=== PATIENT | female | born 1990 | race Caucasian/White ===

== ENCOUNTER 2025-03-13 02:05 | Day surgery (SDC) | payer OTHER, SELFPAY ==
[2025-03-05 17:55] VITALS: BMI 34.4
--- NOTE | 2025-03-05 17:57 | SUR.PREOP ---
Report to the Outpatient Waiting Room, entrance under the green pavilion located off [facility], at time __0700 on date __03/13/25 . Planned Procedure Time: ____899____.? Time changes happen often and if your time is changed the preop area will call you the afternoon before. - You and your visitor will be asked to self-screen and do not enter if you have any COVID symptoms. Please call surgeon if you need to reschedule. - A mask is optional within the hospital at this time. Patients may have clear liquids (water, carbonated beverages, clear teas, apple juice) until 3 hours prior to surgery with a maximum of 20 ounces. - No food from midnight until time of surgery and no smoking, or chewing tobacco (or any form of nicotine). No chewing gum, candy or mints. - Infants may have breast milk until 4 hours before surgery, formula 6 hours prior to surgery. - Children will be allowed to drink immediately following surgery.? If applicable, please bring a bottle or sippy cup to assist with drinking. Juice, water, soda, and popsicles are readily available.? For infants on formula, please bring formula the day of surgery.? Pacifiers are allowed. Take only the following medications with a SIP of water on the morning of surgery: Gabapentin DO NOT STOP ANY OF YOUR OTHER PRESCRIPTION MEDICATIONS PRIOR TO SURGERY EXCEPT THE FOLLOWING Hold all vitamins and supplements for 3 days per anesthesiologist. Medications to discontinue per physician Hold Strattera DOS Date to take last dose Please no make-up, nail sinhala, hairspray, perfume, deodorant, or body powder the day of surgery.? No jewelry (including any body piercings) or valuables the day of surgery, leave them at home.? Please take a shower or bath the night before, or the morning of, surgery with an antibacterial soap.? Wear comfortable, loose fitting clothing.? Children are encouraged to wear pajamas. - Jewelry must be removed prior to entering the operating room.? Rings and piercings that are not removed may be cut off. - The hospital will not accept responsibility for valuables.? - Please leave all valuables, including medications, at home the day of surgery. If you are going home after surgery, a licensed tractor sweeper driver must drive you home.? - NO public transportation without another adult if you receive anesthesia. - We recommend that an adult stay with you for 24 hours following discharge. - We also recommend that you do not drive, make important decision, drink alcoholic beverages, or take any drugs that were not prescribed by your health care provider for at least 24 hours after your discharge time. For Pediatric surgeries, we recommend two adults accompany the child home. Follow any additional instructions given to you from your surgeon. Telephone instructions given to Arlet and asked if any additional questions and then verbalized understanding. Patient advised to call surgeon office or pre surgery nurse liaison [phone] if any additional questions.
[2025-03-13] VITALS (10 sets, daily range): BP systolic 102–124; BP diastolic 68–95; PULSE 54–78; RESP 10–17; TEMP 36.3–36.4; O2SAT 96–100
--- OUTSIDE RECORDS SUMMARY | 2025-03-13 02:08 | XMS_ITS ---
Author Organization [facility] Address [address] [place] [address] Care Team Providers Care Diamond Assorter Name Role Phone Emilia Chan Primary Care Provider [phone] [place] Cortez Unavailable [phone] Results Component Value Reference Range Notes 14 Panel Urine Drug Screen ( Not yet reviewed by provider) Interpretation: Performing Lab: Notes/Report: THC pos CALVIN neg MOP (OPI) neg AMP neg MET neg BAR neg BZO neg MDMA neg MTD neg OXY neg PCP neg BUP neg TCA neg FTY neg Creatinine neg REASON FOR VISIT UDS Medications Medication SIG (Take, Route, Frequency, Duration) Notes Start Date End Date Status Prazosin HCl 5 MG TAKE 1 CAPSULE BY MOUTH EVERYDAY AT BEDTIME; Duration: 90 Active Atomoxetine HCl 40 MG 1 capsule in the morning Orally Once a day; Duration: 30 days Please CAF; working on PA Active ARIPiprazole 15 MG TAKE 1 TABLET BY MOUTH EVERY DAY FOR 30 DAYS; Duration: 90 Active KlonoPIN 0.5 MG 1 tablet Orally Once a day; Duration: 30 days As needed 02/26/2025 Active hydrOXYzine Pamoate 25 MG 1-2 capsules for anxiety Orally Twice daily; Duration: 30 days As needed Active Strattera 40 MG TAKE 1 CAPSULE BY MOUTH EVERY DAY AT THE MORNING FOR 30 DAYS; Duration: 90 days Active SUMAtriptan Unknown Gabapentin 600 MG 1 capsule Orally Twice a day Active Ondansetron 4 MG 1 tablet on the tongue and allow to dissolve as needed for nausea Orally Once a day; Duration: 30 days 10/26/2023 Active FLUoxetine HCl 10 MG TAKE 1 CAPSULE BY MOUTH EVERY DAY FOR 30 DAYS; Duration: 90 days Active Depo-Provera Active Social History Sex Assigned At : Social History Observation Description Sex Assigned At Female Encounters Encounter Location Date Provider Diagnosis [facility] [address] [facility] [place] [address] 02/27/2025 Venice Cortez Medication monitoring encounter Z51.81 Assessments Encounter Date Diagnosis (ICD Code) Assessment Notes Treatment Notes Treatment Clinical Notes Section Notes 02/27/2025 Medication monitoring encounter (ICD-10 - Z51.81) Plan Of Treatment Pending Test Test Name Order Date 14 Panel Urine Drug Screen 02/27/2025 Progress Notes * DIOGENES ColinvelDOB:1990 (34 yo F)Acc No.[id number]:02/27/2025 UNLOCKED PROGRESS NOTE Patient: Arlet MEYER Provider: Leyla Cortez, MSN, STATUS CONTROLLER, OBSTETRICAL ANESTHESIOLOGIST-C :1990 A ge:34 Y S ex:Female Date:02/27/2025 [facility] Pcp:Emilia Chan Subjective: * Chief Complaints: * 1 . UDS. * Medical History: * Medications: T aking Depo-Provera , Taking Gabapentin 600 MG Tablet 1 capsule Orally Twice a day , Taking Ondansetron 4 MG Tablet Disintegrating 1 tablet on the tongue and allow to dissolve as needed for nausea Orally Once a day , Taking Strattera 40 MG Capsule TAKE 1 CAPSULE BY MOUTH EVERY DAY AT THE MORNING FOR 30 DAYS , Taking FLUoxetine HCl 10 MG Capsule TAKE 1 CAPSULE BY MOUTH EVERY DAY FOR 30 DAYS , Taking hydrOXYzine Pamoate 25 MG Capsule 1-2 capsules for anxiety Orally Twice daily As needed, Taking KlonoPIN 0.5 MG Tablet 1 tablet Orally Once a day As needed, Taking Atomoxetine HCl 40 MG Capsule 1 capsule in the morning Orally Once a day , Notes to Pharmacist: Please CAF; working on PA, Taking ARIPiprazole 15 MG Tablet TAKE 1 TABLET BY MOUTH EVERY DAY FOR 30 DAYS , Taking Prazosin HCl 5 MG Capsule TAKE 1 CAPSULE BY MOUTH EVERYDAY AT BEDTIME , Unknown SUMAtriptan Objective: * Vitals: Assessment: * Assessment: 1. M edication monitoring encounter - Z51.81 Plan: * Treatment: Value Reference Range T HC pos * C OC neg * M OP (OPI) neg * A MP neg * M ET neg * B AR neg * B ZO neg * M DMA neg * M TD neg * O XY neg * P CP neg * B UP neg * T CA neg * F TY neg * C reatinine neg * Procedure Codes: 9 9000 SPECIMEN HANDLING * * Electronic signature of Madan Cortez , [id number] on 03/13/2025 at 02:07 AM CDT Sign off status: Pending * Provider: Leyla Cortez, MSN, STATUS CONTROLLER, OBSTETRICAL ANESTHESIOLOGIST-C Date: 0 02/27/2025 Generated for Audra smith/María/eTphillipsmitting on: 03/13/2025 02:07 AM CDT
--- OUTSIDE RECORDS SUMMARY | 2025-03-13 02:08 | XMS_ITS | Patient Health Record ---
Author Organization [facility] Address [address] [place] [address] Care Team Providers Care Chronic Care Nurse Name Role Phone AdrianneluisjalenCarlos EduardoEmilia Primary Care Provider Venice Cortez Unavailable [phone] Ashly Stewart Unavailable [phone] Allergies Allergen (clinical drug ingredient) Drug/Non Drug Allergy documented on EMR Reaction Allergy Type Onset Date Status Ciprofloxacin anaphylaxis Drug Allergy A ctive amoxicillin Amoxicillin Unknown Drug Allergy Act darek Penicillin Unknown Drug Allergy Active Results Component Value Reference Range Notes 14 Panel Urine Drug Screen ( Not yet reviewed by provider) Interpretation: Performing Lab: Notes/Report: THC pos CALVIN neg MOP (OPI) neg AMP neg MET neg BAR neg BZO neg MDMA neg MTD neg OXY neg PCP neg BUP neg TCA neg FTY neg Creatinine neg 12 Panel Urine Drug Screen Reviewed date:05/28/2024 01:09:22 PM Interpretation: Performing Lab: Notes/Report: THC POS CALVIN neg MOP (OPI) neg AMP neg MET neg BAR neg BZO neg MDMA neg MTD neg OXY neg PCP neg BUP neg 14 Panel Urine Drug Screen ( Not yet reviewed by provider) Interpretation: Performing Lab: Notes/Report: THC P CALVIN N MOP (OPI) N AMP N MET N BAR N BZO N MDMA N MTD N OXY N PCP N BUP N TCA P FTY P Comprehensive Drug Analysis, Urine Reviewed date:02/25/2025 11:31:30 AM Interpretation: Performing Lab:[facility], [address] [facility], Phone - [phone], Director - Janice Notes/Report: [facility]ox[facility], ToxAssure FLEX or MAT drug testin [address] [facility] [address] Summary Report (Summary) FINAL COMPREHENSIVE DRUG ANALYSIS,UR Test Result Flag Units Drug Present Carboxy-THC 65 ng/mg creat Carboxy-THC is a metabolite of tetrahydrocannabinol (THC). Source of THC is most commonly herbal marijuana or marijuana-based products, but THC is also present in a scheduled prescription medication. Trace amounts of THC can be present in hemp and cannabidiol (CBD) products. This test is not intended to distinguish between [id number]-[id number], the predominant form of THC in most herbal or marijuana-based products, and wfcyk-[id number]-vqkvqiwanlmhutrtdbyg. Butalbital PRESENT Gabapentin PRESENT Aripiprazole PRESENT Naproxen PRESENT Diphenhydramine PRESENT Hydroxyzine PRESENT Test Result Flag Units Ref Range Creatinine 108 mg/dL >=20 For clinical consultation, please call . PDF . PDF Report Reviewed date:02/25/2025 11:31:30 AM Interpretation: Performing Lab:[facility], [address] [facility], Phone - [phone], Director - Janice Notes/Report: [facility], T[facility] FLEX or MAT drug testin [address] [facility] [address] PDF Report1 LCLS Reason For Referral Reason ASD Screening Diagnosis 1 Bipolar disorder wit h psychotic features (F31.9) Diagnosis 2 Generalized anxiety disorder (F41.1) Diagnosis 3 Adult ADHD (F90.9) Referral Organization [facility] Referring Provider First Name Venice Referring Provider Last Name Diego Referring Provider Speciality Psychiatry Referred Provider Specialty Psychiatry [facility] Notes Venice Cortez 11/2024 02:05:17 PM > Client with possible ASD symptoms, please refer., Lucero Rudd 11/22/2024 11:24:19 AM >Referral faxed to number below, letter mailed to address on file., Yina Chakraborty 01/07/2025 08:52:54 AM > Received a voicemail from pt. Pt. reports the below listed location, which this referral was sent to, does not do autism screenings. Pt. requests a call back. See TE.Tobin Kamilah A 01/08/2025 11:28:10 AM >> Due to patient insurance [place], [facility] does not accept insurance for adult Autism screenings. Called [facility] in [place] they also do not accept patient insurance, said they will reach out to patient and may be able to help with some out of pocket discounts. patient info given to office.Tobin Kamilah A 01/08/2025 11:28:28 AM >called and spoke to patient above message explained to patient states she will reach out to [facility] and see where her insurance is accepted for adult Autism screenings Clinical Notes Lucero Rudd 11/04 11:23:14 AM >, Psychiatry Services, [facility], [address] [id number], , Referral Priority Routine Medications Medication SIG (Take, Route, Frequency, Duration) Notes Start Date End Date Status Strattera 40 MG TAKE 1 CAPSULE BY MOUTH EVERY DAY AT THE MORNING FOR 30 DAYS; Duration: 90 days Active SUMAtriptan Unknown Gabapentin 600 MG 1 capsule Orally Twice a day Active Ondansetron 4 MG 1 tablet on the tongue and allow to dissolve as needed for nausea Orally Once a day; Duration: 30 days 10/26/2023 Active Prazosin HCl 5 MG TAKE 1 CAPSULE BY MOUTH EVERYDAY AT BEDTIME; Duration: 90 Active Depo-Provera Active Atomoxetine HCl 40 MG 1 capsule in the morning Orally Once a day; Duration: 30 days Please CAF; working on PA Active ARIPiprazole 15 MG TAKE 1 TABLET BY MOUTH EVERY DAY FOR 30 DAYS; Duration: 90 Active KlonoPIN 0.5 MG 1 tablet Orally Once a day; Duration: 30 days As needed 02/26/2025 Active FLUoxetine HCl 10 MG TAKE 1 CAPSULE BY MOUTH EVERY DAY FOR 30 DAYS; Duration: 90 days Active hydrOXYzine Pamoate 25 MG 1-2 capsules for anxiety Orally Twice daily; Duration: 30 days As needed Active Social History Tobacco Use: Social History Observation Description Date Details (start date - stop date) Current Smoker NA - NA Sex Assigned At : Social History Observation Description Sex Assigned At Female PRAPARE Question Answer Notes Are you a refugee? No What country are you from? [place] Date Completed/Updated: 12/13/2023 What is your current housing situation? I have h ousing Are you worried about losing your housing? No What is the highest level of school that you have finished? 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 Check all that apply I do not have problems meeting my needs Has lack of transportation k ept you from medical appointments, meetings, work or from getting things needed for daily living? No How often do you see or talk to people that you care about and feel close to? (For example: talking to friends on the phone, visiting friends or family, going to anabaptist or club meetings) More than 5 times a week How stressed are you? Stress is when someone feels tense, nervous, anxious, or can\t sleep at night because their mind is troubled Somewhat In the past year have you sp ent more than 2 nights in a row in a correction, skilled nursing, half-way center, or juvenile correctional facility? No Do you feel physically and e motionally safe where you currently live? Yes In the past year, have you b een afraid of your partner or ex-partner? No PRAPARE Score: 2 Tobacco Control (Standard) Question Answer Notes Tobacco use: Current smoker How often do you smoke cigarettes? 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) Methamphetamine use disorder, mild, 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) Active confirmed Problem Attention deficit hyperactivity disorder (662610460) Adult ADHD (F90.9) Active confirmed Vital Signs Heart Rate 94 /min 02/18/2025 Temperature 98.2 degrees Fahrenheit 10/08/2024 Respiratory Rate 16 /min 02/18/2025 Blood pressure diastolic 68 mm Hg 02/18/2025 Oximetry 100 % 02/18/2025 Height 65 in 02/18/2025 Blood pressure systolic 112 mm Hg 02/18/2025 Weight 202.6 lbs 02/18/2025 BMI 33.71 kg/m2 02/18/2025 Encounters Encounter Location Date Provider Diagnosis [address] [place] [address] 02/27/2025 Venice Cortez Medication monitoring encounter Z51.[address] [place] [address] 03/22/2024 Ashly Terry Bipolar disorder with psychotic features F31.9 ; Generalized anxiety disorder F41.1 ; PTSD (post-traumatic stress disorder) F43.10 and Adult ADHD F90.[address] [address] 05/08/2024 Ashly Terry Bipolar disorder with psychotic features F31.9 ; Generalized anxiety disorder F41.1 ; PTSD (post-traumatic stress disorder) F43.10 and Adult ADHD F90.[address] [address] 05/28/2024 Venice Cortez Medication monitoring encounter Z51.[address] [address] 06/11/2024 Venice Cortez Bipolar disorder with psychotic features F31.9 ; Generalized anxiety disorder F41.1 ; PTSD (post-traumatic stress disorder) F43.10 and Adult ADHD F90.9 [address] [address] [place] [address] 06/26/2024 Venice Cortez Bipolar disorder with psychotic features F31.9 ; Generalized anxiety disorder F41.1 ; PTSD (post-traumatic stress disorder) F43.10 and Adult ADHD F90.9 [address] [address] [place] [address] 09/11/2024 Venice Cortez Bipolar disorder with psychotic features F31.9 ; Generalized anxiety disorder F41.1 ; PTSD (post-traumatic stress disorder) F43.10 and Adult ADHD F90.[address] [address] 10/08/2024 Venicecarmelina Cortez Bipolar disorder with psychotic features F31.9 ; Generalized anxiety disorder F41.1 ; PTSD (post-traumatic stress disorder) F43.10 and Adult ADHD F90.9 [address] [address] [place] [address] 11/27/2024 Venice Diego Bipolar disorder with psychotic features F31.9 ; Generalized anxiety disorder F41.1 ; PTSD (post-traumatic stress disorder) F43.10 and Adult ADHD F90.[address] [place] [address] 02/18/2025 Venice Cortez Bipolar disorder with psychotic features F31.9 ; Generalized anxiety disorder F41.1 ; PTSD (post-traumatic stress disorder) F43.10 and Adult ADHD F90.[address] [place] [address] 04/23/2024 Ashlyguerda Barnettte Generalized anxiety disorder F41.1 [facility] [address] [place] [address] 05/31/2024 Venice Cortez Generalized anxiety disorder F41.[address] [place] [address] 06/05/2024 Venice Cortez [facility] [address] [place] [address] 06/12/2024 Venice Cortez Generalized anxiety disorder F41.1 ; PTSD (post-traumatic stress disorder) F43.10 and Bipolar disorder with psychotic features F31.[address] [place] [address] 09/12/2024 Venice Cortez [address] [place] [address] 09/25/2024 Venice Cortez [address] [place] [address] 09/27/2024 Venice Cortez Bipolar disorder with psychotic features F31.[address] [place] [address] 10/08/2024 Venice Cortez [address] [address] [place] [address] 01/07/2025 Venice Cortez [facility] [address] [place] [address] 02/08/2025 Venice Cortez [address] [place] [address] 02/18/2025 Venice Cortez Adult ADHD F90.[address] [place] [address] 02/25/2025 Venice Cortez Medication monitoring encounter Z51.[address] [place] [address] 05/23/2024 Venice Cortez Bipolar disorder with psychotic features F31.[address] [place] [address] 05/23/2024 Emilia Chan [address] [place] [address] 05/24/2024 Venice Cortez Medication monitoring encounter Z51.[address] [place] [address] 05/29/2024 Emilia Chan [address] [place] [address] 06/05/2024 Venice Cortez [address] [place] [address] 06/15/2024 Venice Cortez Assessments Encounter Date Diagnosis (ICD Code) Assessment Notes Treatment Notes Treatment Clinical Notes Section Notes 05/24/2024 Medication monitoring encounter (ICD-10 - Z51.81) 02/25/2025 Medication monitoring encounter (ICD-10 - Z51.81) 02/27/2025 Medication monitoring encounter (ICD-10 - Z51.81) 05/23/2024 Bipolar disorder with psychotic features (ICD-10 - F31.9) 02/18/2025 Adult ADHD (ICD-10 - F90.9) 06/11/2024 Bipolar disorder with psychotic features (ICD-10 - F31.9) Client reports SE of Rexulti at 1 mg and low efficacy at 0.5 mg. Stopping this medication- restarting Abilify as client has done well with this medication in the past. May look to restart SSRI as well. 09/11/2024 Bipolar disorder with psychotic features (ICD-10 - F31.9) Hx of doing well with Lexapro but had SE of decreased libido, starting Prozac, discussed r/b/se. SE of Rexulti at 1 mg and low efficacy at 0.5 mg 09/27/2024 Bipolar disorder with psychotic features (ICD-10 - F31.9) 10/08/2024 Bipolar disorder with psychotic features (ICD-10 - F31.9) Increased 1 week ago. Take as prescribed. Reviewed purpose (mood stability), benefits, and risks - low blood pressure, metabolic syndrome with high cholesterol or high blood sugars, change in cardiac conduction, nausea, vomiting, temporary or permanent movement disorders, and akathisia. Explained that no medication can be guaranteed to be 100% safe for baby or mother. SE of Rexulti at 1 mg and low efficacy at 0.5 mg Lexapro with decreased libido Fluoxetine with brain fog 11/27/2024 Bipolar disorder with psychotic features (ICD-10 - F31.9) Reports doing well with current dose without SE noted. [place] agreement to continue. Take as prescribed. Reviewed purpose (mood stability), benefits, and risks - low blood pressure, metabolic syndrome with high cholesterol or high blood sugars, change in cardiac conduction, nausea, vomiting, temporary or permanent movement disorders, and akathisia. Explained that no medication can be guaranteed to be 100% safe for baby or mother. SE of Rexulti at 1 mg and low efficacy at 0.5 mg Lexapro with decreased libido Fluoxetine with brain fog 02/18/2025 Bipolar disorder with psychotic features (ICD-10 - F31.9) Reports doing well with current dose without SE noted. [place] agreement to continue. Take as prescribed. Reviewed purpose (mood stability), benefits, and risks - low blood pressure, metabolic syndrome with high cholesterol or high blood sugars, change in cardiac conduction, nausea, vomiting, temporary or permanent movement disorders, and akathisia. Explained that no medication can be guaranteed to be 100% safe for baby or mother. SE of Rexulti at 1 mg and low efficacy at 0.5 mg Lexapro with decreased libido Fluoxetine with brain fog 05/28/2024 Medication monitoring encounter (ICD-10 - Z51.81) 05/31/2024 Generalized anxiety disorder (ICD-10 - F41.1) 06/12/2024 Generalized anxiety disorder (ICD-10 - F41.1) 06/26/2024 Bipolar disorder with psychotic features (ICD-10 - F31.9) Continue Abilify as client has done well with this medication in the past, some efficacy noted and client only started on 06/15/24. May look to restart SSRI as well. SE of Rexulti at 1 mg and low efficacy at 0.5 mg 03/22/2024 Bipolar disorder with psychotic features (ICD-10 - F31.9) Pt reports that her racing thoughts have decreased since starting Rexulti; pt reports that she is tolerating medication well. Pt denies SI/HI at this time. PHQ-9 score is 11 today; was 15 at last visit 04/23/2024 Generalized anxiety disorder (ICD-10 - F41.1) 05/08/2024 Bipolar disorder with psychotic features (ICD-10 - F31.9) Will increase Rexulti to 1mg to aid labile moods and paranoia. Pt denies SI/HI at this time. PHQ-9 score is 9 today; was 11 at last visit 05/08/2024 Generalized anxiety disorder (ICD-10 - F41.1) Pt reports that she stopped taking Propranolol due to migraines. Pt continues to take Hydroxyzine PRN 03/22/2024 Generalized anxiety disorder (ICD-10 - F41.1) Pt reports that her anxiety is overall controlled at this time and is tolerating meds well. pt denies side effects at this time. 06/26/2024 Generalized anxiety disorder (ICD-10 - F41.1) Pt continues to take Hydroxyzine PRN Klonopin for RARE PRN use. PDMP checked without concerns. Client aware of controlled sub, discussed education, r/b/se. 06/12/2024 PTSD (post-traumati c stress disorder) (ICD-10 - F43.10) 02/18/2025 Generalized anxiety disorder (ICD-10 - F41.1) Pt continues to take Hydroxyzine PRN Klonopin for RARE PRN use- HOLD at this time due to UDS results. Comprehensive order placed and will review. 11/27/2024 Generalized anxiety disorder (ICD-10 - F41.1) Pt continues to take Hydroxyzine PRN Klonopin for RARE PRN use. PDMP checked without concerns. Client aware of controlled sub, discussed education, r/b/se. 10/08/2024 Generalized anxiety disorder (ICD-10 - F41.1) Pt continues to take Hydroxyzine PRN Klonopin for RARE PRN use. PDMP checked without concerns. Client aware of controlled sub, discussed education, r/b/se. 09/11/2024 Generalized anxiety disorder (ICD-10 - F41.1) Pt continues to take Hydroxyzine PRN Klonopin for RARE PRN use. PDMP checked without concerns. Client aware of controlled sub, discussed education, r/b/se. 06/11/2024 Generalized anxiety disorder (ICD-10 - F41.1) Pt continues to take Hydroxyzine PRN Klonopin for RARE PRN use. See previous TE. 06/11/2024 PTSD (post-traumati c stress disorder) (ICD-10 - F43.10) 09/11/2024 PTSD (post-traumati c stress disorder) (ICD-10 - F43.10) 10/08/2024 PTSD (post-traumati c stress disorder) (ICD-10 - F43.10) 11/27/2024 PTSD (post-traumati c stress disorder) (ICD-10 - F43.10) 02/18/2025 PTSD (post-traumati c stress disorder) (ICD-10 - F43.10) 06/12/2024 Bipolar disorder with psychotic features (ICD-10 - F31.9) 06/26/2024 PTSD (post-traumati c stress disorder) (ICD-10 - F43.10) Increasing for nightmares 03/22/2024 PTSD (post-traumati c stress disorder) (ICD-10 - F43.10) Will increase Prazosin to 3mg to aid night terrors. Pt reports that she has been tolerating med well and Prazosin was helping in the past with night terrors. Encouraged pt to schedule therapy appt 05/08/2024 PTSD (post-traumati c stress disorder) (ICD-10 - F43.10) Will increase Prazosin to 4 mg to aid night terrors. Pt reports that she has been tolerating med well and Prazosin was helping in the past with night terrors. Encouraged pt to schedule therapy appt. Pt understands that her next appt needs to be in office to check B/P. Pt also is requesting to wean and stop Fluoxetine. Will have pt wean medication over the next 2 weeks and then stop at that time. 05/08/2024 Adult ADHD (ICD-10 - F90.9) 03/22/2024 Adult ADHD (ICD-10 - F90.9) 06/26/2024 Adult ADHD (ICD-10 - F90.9) Encouraged therapy 02/18/2025 Adult ADHD (ICD-10 - F90.9) Denies hx of cardiac concerns Has been off for a month and states big change without this, and not in a good way. 11/27/2024 Adult ADHD (ICD-10 - F90.9) Denies hx of cardiac concerns 10/08/2024 Adult ADHD (ICD-10 - F90.9) Denies hx of cardiac concerns 09/11/2024 Adult ADHD (ICD-10 - F90.9) Encouraged therapy 06/11/2024 Adult ADHD (ICD-10 - F90.9) Encouraged therapy 03/22/2024 Other Discussed treat ment planDiscussed sleep hygiene and caffeine intakeReturn to clinic 4 weeksEncouraged counselingDiscussed treatment plan; patient is agreeable and accepting of treatment plan. Patient denies further questions or concerns at this time. The Patient/Guardian asked appropriate questions, appeared to understand the answers, and decided to accept the treatment and continue being followed.The Patient/Guardian is aware of the need to contact the office or return for an earlier appointment if any problems or concerns arise. May also contact the 24-hour crisis hotline ([facility]), refer to the closest emergency room or call 911 if new symptoms arise of existing symptoms worsen; the Patient/Guardian is aware that this would apply to symptoms such as: suicidal ideation, homicidal ideation, high risk behaviors, manic symptoms, psychotic symptoms, physical symptoms, or any other symptoms that may be dangerous to self or others. 05/08/2024 Other Discussed treat ment planDiscussed sleep hygiene and caffeine intakeReturn to clinic 3-4 weeksEncouraged counselingDiscussed treatment plan; patient is agreeable and accepting of treatment plan. Patient denies further questions or concerns at this time. The Patient/Guardian asked appropriate questions, appeared to understand the answers, and decided to accept the treatment and continue being followed.The Patient/Guardian is aware of the need to contact the office or return for an earlier appointment if any problems or concerns arise. May also contact the 24-hour crisis hotline ([facility]), refer to the closest emergency room or call 911 if new symptoms arise of existing symptoms worsen; the Patient/Guardian is aware that this would apply to symptoms such as: suicidal ideation, homicidal ideation, high risk behaviors, manic symptoms, psychotic symptoms, physical symptoms, or any other symptoms that may be dangerous to self or others. 06/11/2024 Other Reasons, potential benefits, potential risks, interactions and side effects of all medications were discussed. The Patient/Guardian asked appropriate questions, appeared to understand the answers, and decided to accept the treatment and continue being followed. Alternatives and expected course without treatment were reviewed. The Patient/Guardian is aware of the need to contact the office or return for an earlier appointment if any problems or concerns arise. May also contact the 24-hour crisis hotline ([facility]), refer to the closest emergency room or call 911 if new symptoms arise of existing symptoms worsen. The Patient/Guardian is aware that this would apply to symptoms like: suicidal ideation, homicidal ideation, high risk behaviors, manic symptoms, psychotic symptoms, physical symptoms, or any other symptoms that may be dangerous to self or others. Greater than 50% of time spent on coordination and counseling where psychopharmacology as well as psychotherapeutic interventions were discussed along with review of treatments in the past. Education provided concerning need for adequate hydration. Patient/Guardian verbalized understanding of education, treatment plan and follow up. Lamotrigine made her feel sick, Depakote made things worse, Effexor increase SI, Topamax was not effective at high doses per client, Wellbutrin caused nausea and migraines; Rexulti unable to increase to efficacious doses due to tremors. 06/26/2024 Other Reasons, potential benefits, potential risks, interactions and side effects of all medications were discussed. The Patient/Guardian asked appropriate questions, appeared to understand the answers, and decided to accept the treatment and continue being followed. Alternatives and expected course without treatment were reviewed. The Patient/Guardian is aware of the need to contact the office or return for an earlier appointment if any problems or concerns arise. May also contact the 24-hour crisis hotline ([facility]), refer to the closest emergency room or call 911 if new symptoms arise of existing symptoms worsen. The Patient/Guardian is aware that this would apply to symptoms like: suicidal ideation, homicidal ideation, high risk behaviors, manic symptoms, psychotic symptoms, physical symptoms, or any other symptoms that may be dangerous to self or others. Greater than 50% of time spent on coordination and counseling where psychopharmacology as well as psychotherapeutic interventions were discussed along with review of treatments in the past. Education provided concerning need for adequate hydration. Patient/Guardian verbalized understanding of education, treatment plan and follow up. This session was completed telephonically with client/parental/guardi an consent: Unable to determine movement status, assess appearance, affect, AIMS, or vital signs. 09/11/2024 Other Reasons, potential benefits, potential risks, interactions and side effects of all medications were discussed. The Patient/Guardian asked appropriate questions, appeared to understand the answers, and decided to accept the treatment and continue being followed. Alternatives and expected course without treatment were reviewed. The Patient/Guardian is aware of the need to contact the office or return for an earlier appointment if any problems or concerns arise. May also contact the 24-hour crisis hotline ([facility]), refer to the closest emergency room or call 911 if new symptoms arise of existing symptoms worsen. The Patient/Guardian is aware that this would apply to symptoms like: suicidal ideation, homicidal ideation, high risk behaviors, manic symptoms, psychotic symptoms, physical symptoms, or any other symptoms that may be dangerous to self or others. Greater than 50% of time spent on coordination and counseling where psychopharmacology as well as psychotherapeutic interventions were discussed along with review of treatments in the past. Education provided concerning need for adequate hydration. Patient/Guardian verbalized understanding of education, treatment plan and follow up. This session was completed telephonically with client/parental/guardi an consent: Unable to determine movement status, assess appearance, affect, AIMS, or vital signs. 10/08/2024 Other Reasons, potential benefits, potential risks, interactions and side effects of all medications were discussed. The Patient/Guardian asked appropriate questions, appeared to understand the answers, and decided to accept the treatment and continue being followed. Alternatives and expected course without treatment were reviewed. The Patient/Guardian is aware of the need to contact the office or return for an earlier appointment if any problems or concerns arise. May also contact the 24-hour crisis hotline ([facility]), refer to the closest emergency room or call 911 if new symptoms arise of existing symptoms worsen. The Patient/Guardian is aware that this would apply to symptoms like: suicidal ideation, homicidal ideation, high risk behaviors, manic symptoms, psychotic symptoms, physical symptoms, or any other symptoms that may be dangerous to self or others. Greater than 50% of time spent on coordination and counseling where psychopharmacology as well as psychotherapeutic interventions were discussed along with review of treatments in the past. Education provided concerning need for adequate hydration. Patient/Guardian verbalized understanding of education, treatment plan and follow up. 11/27/2024 Other Reasons, potential benefits, potential risks, interactions and side effects of all medications were discussed. The Patient/Guardian asked appropriate questions, appeared to understand the answers, and decided to accept the treatment and continue being followed. Alternatives and expected course without treatment were reviewed. The Patient/Guardian is aware of the need to contact the office or return for an earlier appointment if any problems or concerns arise. May also contact the 24-hour crisis hotline ([facility]), refer to the closest emergency room or call 911 if new symptoms arise of existing symptoms worsen. The Patient/Guardian is aware that this would apply to symptoms like: suicidal ideation, homicidal ideation, high risk behaviors, manic symptoms, psychotic symptoms, physical symptoms, or any other symptoms that may be dangerous to self or others. Greater than 50% of time spent on coordination and counseling where psychopharmacology as well as psychotherapeutic interventions were discussed along with review of treatments in the past. Education provided concerning need for adequate hydration. Patient/Guardian verbalized understanding of education, treatment plan and follow up. This session was completed telephonically with client/parental/guardi an consent: Unable to determine movement status, assess appearance, affect, AIMS, or vital signs. 02/18/2025 Other Reasons, potential benefits, potential risks, interactions and side effects of all medications were discussed. The Patient/Guardian asked appropriate questions, appeared to understand the answers, and decided to accept the treatment and continue being followed. Alternatives and expected course without treatment were reviewed. The Patient/Guardian is aware of the need to contact the office or return for an earlier appointment if any problems or concerns arise. May also contact the 24-hour crisis hotline ([facility]), refer to the closest emergency room or call 911 if new symptoms arise of existing symptoms worsen. The Patient/Guardian is aware that this would apply to symptoms like: suicidal ideation, homicidal ideation, high risk behaviors, manic symptoms, psychotic symptoms, physical symptoms, or any other symptoms that may be dangerous to self or others. Greater than 50% of time spent on coordination and counseling where psychopharmacology as well as psychotherapeutic interventions were discussed along with review of treatments in the past. Education provided concerning need for adequate hydration. Patient/Guardian verbalized understanding of education, treatment plan and follow up. Plan Of Treatment Pending Test Test Name Order Date 14 Panel Urine Drug Screen 02/27/2025 Future Test Test Name Order Date 14 Panel Urine Drug Screen 02/18/2025 Insurance Providers Payer Name Payer Address Payer Phone Subscriber Number Group Number Insured Name Patient Relationship to Insured Coverage Start Date Coverage End Date [employer] [address] [place] [address] [id number] Arlet Shetty Self - patient is the insured 9 [employer] [address] [place] [address] [id number] Arlet Shetty Self - patient is the insured 9 Medical (General) History Medical History History ICD Code Migraines Methamphetamine use disorder Seasonal allergies Surgical History Surgery Date(Month/Year) left ankle repair x2 2014 dental surgery Hospitalization History Reason Date(Month/Year) x4
--- OUTSIDE RECORDS SUMMARY | 2025-03-13 02:08 | XMS_ITS | Data Portability ---
Author Organization [facility] Address [address] [place] [address] Assessment No assessment recorded. Plan of Treatment Reminders Order Date Submit Date Provider Last Modified By Organization Details Last Modified Time Details Appointments SURG Salpingec lakia 2024 09:00A Saeed MCDERMOTT MD Not available Not available Not available SURG POST OP 2024 03:15P Saeed MCDERMOTT MD Not available Not available Not available Lab None recorded. Referral None recorded. Procedures None recorded. Surgeries salpingec lakia, laparosco pic (SURG) 2024 [id number] [facility], [address], [place], [address], 02/08/2025 13:10:55 Imaging None recorded. Medication Orders None recorded. Patient TargetsNo targets recorded. Patient InstructionsNo instructions recorded. Reason for Referral None Reported. Problems Name Problem SNOMED Code Status Onset Date Resolution Date Notes Provider Name and Address Organization Details Recorded Time Atypical squamous cells of undetermi karol significa nce on cervical Papanicol aou smear 532386395 Active 2014 Papanicol aou smear of cervix with atypical squamous cells of undetermi karol significa nce (ASC-US); Recorded Elsewhere : No Locati on: [facility] So urce: EHR Chron ic: N Practic e ID: 0001 Bill able Time: 11:40:26 AM Not Available [facility] 0 18:59:23 Female genital organ symptoms 658257211 Active 2014 Unspecifi ed symptom associate d with female genital organs;Re corded Elsewhere : No Locati on: [facility] So urce: EHR Chron ic: N Practic e ID: 0001 Bill able Time: 02:30:00 PM Not Available [facility] 0 18:59:23 Family planning surveilla nce Active 2014 CONTRACEP T SURVEILL NEC;Pract ice ID: 0001 Not Available [facility] 0 18:59:23 Dysfuncti onal uterine bleeding Active 2014 DUB;Pract ice ID: 0001 Not Available [facility] 0 18:59:24 Clinical finding Active 2015 Encounter for surveilla nce of injectabl e contracep tive;Prac nati ID: 0001 Not Available [facility] 0 18:59:24 test negative 152479635 Active 2015 Encounter for test, result negative; Practice ID: 0001 Not Available [facility] 0 18:59:[address] Concept Active 2015 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 abn findings; Practice ID: 0001 Not Available [facility] 0 18:59:24 Low grade squamous intraepit helial lesion on cervical Papanicol aou smear 25490944356 105 Active 2015 Low grade intrepith lesion cyto smr crvx (LGSIL);P ractice ID: 0001 Not Available [facility] 0 18:59:24 Cytologic finding 364581085 Active 2014 Papanicol aou smear of cervix with low grade squamous intraepit helial lesion (LGSIL);R ecorded Elsewhere : No Locati on: [facility] So urce: EHR Chron ic: N Practic e ID: 0001 Bill able Time: 10:30:00 AM Not Available [facility] 0 18:59:24 Specializ ed medical examinati on Active 2010 Gynecolog ical Examinati on;Record ed Elsewhere : No Locati on: [facility] So urce: EHR Chron ic: N Practic e ID: 0001 Bill able Time: 01:00:00 PM Not Available [facility] 0 18:59:24 Radiology result abnormal 192248606 Active 2014 ABN FIND-BODY STRUCT NEC;Recor ded Elsewhere : No Locati on: [facility] So urce: EHR Chron ic: N Practic e ID: 0001 Bill able Time: 11:00:00 AM Not Available [facility] 0 18:59:24 Abdominal pain 25281497 Active 2012 Abdominal Pain;Bucky rded Elsewhere : No Locati on: [facility] So urce: EHR Chron ic: Y Practic e ID: 0001 Bill able Time: 10:30:00 AM Not Available [facility] 0 18:59:24 Adult health examinati on Active 2014 ROUTINE MEDICAL EXAM;Bucky rded Elsewhere : No Locati on: [facility] So urce: EHR Chron ic: N Practic e ID: 0001 Bill able Time: 01:00:00 PM Not Available [facility] 0 18:59:25 Screening for malignant neoplasm of cervix Active 2012 Pap Smear;Pra ctice ID: 0001 Not Available [facility] 0 18:59:25 Acute sinusitis 52262901 Active 2013 Acute sinusitis , unspecifi ed;Practi ce ID: 0001 Not Available [facility] 0 18:59:[address] Concept Active 2015 Encntr for general adult medical exam w/o abnormal findings; Recorded Elsewhere : No Locati on: [facility] So urce: EHR Chron ic: N Practic e ID: 0001 Bill able Time: 01:30:00 PM Not Available [facility] 0 18:59:27 Problem Notes None recorded. Procedures Surgical History Date Name Laterality Status Provider Name and Address Organization Details Recorded Time 4 Date of Last Pap Smear completed [facility] 02/08/2025 12:40:00 3 operation on oral cavity completed [facility] 02/08/2025 12:45:29 2 Orthopedic Surgery completed [facility] 02/08/2025 12:45:00 Imaging Results None recorded. Procedure Notes None recorded. Medical Equipment None Reported. Allergies Allergen ID Allergen Name Allergen Category Reaction Reaction Severity Criticality Documentation Date Start Date Code Code System Note Provider Name and Address Organization Details Recorded Time 30141 amoxicill in medicatio n Not available Not available Not available 08/22/2020 723 RxNorm React ion: GI probl ems; Comme nt: [facility]; Not Available [facility] 0 14:20:28 Medications Name Sig Start Date Stop Date Status Note LastModified by Organization Details LastModified Time promethaz ine-DM 6.25 mg-15 mg/5 mL oral syrup TAKE 5 ML BY MOUTH EVERY 4 HOURS X10 DAYS. *MAX 180ML/25 DAYS/INS URANCE* 02/08 completed Not Available Not Available Not Available trazodone 50 mg tablet take 1 tablet by oral route 3 times every day after meals 04/08 completed Prescrib ed Elsewher e: Yes Loca tion: [facility] odify By: gen Garcia ncounter DateTime : 05/20/20 15 03:00:00 PM Not Available Not Available Not Available azithromy nelson 250 mg tablet TAKE 2 TABLETS BY MOUTH TODAY, THEN TAKE 1 TABLET DAILY FOR 4 DAYS DIRECTED 02/08 completed Not Available Not Available Not Available Necon 35 (28) 1 mg-35 mcg tablet take 1 tablet by oral route every day for 28 days 07/02 completed Prescrib ed Elsewher e: No Locat ion: [facility] odify By: yelitza Garcia ncounter DateTime : 06/05/20 14 11:00:00 AM Not Available Not Available Not Available ibuprofen 800 mg tablet TAKE 1 TABLET 3 TIMES A DAY BY ORAL ROUTE WITH MEAL(S) FOR 10 DAYS. 02/08 completed Not Available Not Available Not Available valacyclo vir 1 gram tablet TAKE 1 TABLET BY MOUTH THREE TIMES A DAY FOR 10 DAYS active Not Available Not Available No t Available sumatript an 100 mg tablet TAKE 1 TABLET BY MOUTH EVERY DAY NEEDED X9 DAYS active Not Available Not Available No t Available prazosin 1 mg capsule TAKE 1 CAPSULE BY MOUTH AT BEDTIME WITH 2MG TO EQUAL 3MG ONCE A DAY active Not Available Not Available No t Available ibuprofen 200 mg capsule take 1 capsule by oral route every 6 hours as needed 01/31 completed Prescrib ed Elsewher e: Yes Loca tion: [facility] odify By: francoise casarez DateTime : 05/17/20 11 01:00:00 PM Not Available Not Available Not Available prednison e 20 mg tablet PLEASE SEE ATTACHED FOR DETAILED DIRECTIO NS 02/08 completed Not Available Not Available Not Available clonazepa m 0.5 mg tablet TAKE 1 TABLET BY MOUTH EVERY DAY NEEDED FOR 30 DAYS active Not Available Not Available No t Available clindamyc in HCl 150 mg capsule TAKE 1 CAPSULE BY MOUTH EVERY 6 HOURS FOR 10 DAYS 02/08 completed Not Available Not Available Not Available prazosin 5 mg capsule TAKE 1 CAPSULE BY MOUTH EVERYDAY AT BEDTIME active Not Available Not Available No t Available oxycodone -acetamin ophen 5 mg-325 mg tablet TAKE 1 TABLET BY MOUTH UP TO FOUR TIMES DAILY NEEDED 02/08 completed Not Available Not Available Not Available propranol ol 10 mg tablet TAKE 1 TABLET BY MOUTH EVERY DAY 02/08 completed Not Available Not Available Not Available Metrogel Vaginal 0.75 % (37.5 mg/5 gram) insert 1 applicat orful by vaginal route every day at bedtime for 5 days 03/27 completed Prescrib ed Elsewher e: No Locat ion: [facility] odify By: jez casarez DateTime : 02/07/20 14 09:56:38 AM Not Available Not Available Not Available dicyclomi ne 20 mg tablet TAKE 1 TABLET BY MOUTH FOUR TIMES A DAY NEEDED active Not Available Not Available No t Available amitripty line 10 mg tablet take 1 tablet by oral route 3 times every day 02/08 completed Prescrib ed Elsewher e: Yes Loca tion: [facility] odify By: francoise casarez DateTime : 06/17/20 16 10:30:00 AM Not Available Not Available Not Available baclofen 10 mg tablet take 1 tablet by oral route 4 times every day 06/17 completed Prescrib ed Elsewher e: Yes Loca tion: As[facility] g[facility] odify By: francoise mellountjose alejandro DateTime : 05/20/20 15 03:00:00 PM Not Available Not Available Not Available Lamictal 25 mg tablet take 2 tablet by oral route 2 times every day 02/06 completed Prescrib ed Elsewher e: Yes Loca tion: [facility] odify By: gissel elliott DateTime : 07/12/20 13 10:30:00 AM Not Available Not Available Not Available fluoxetin e 10 mg capsule TAKE 1 CAPSULE BY MOUTH EVERY DAY FOR 30 DAYS 02/08 completed Not Available Not Available Not Available gabapenti n 300 mg capsule TAKE 1 CAPSULE BY MOUTH THREE TIMES A DAY FOR 30 DAYS active Not Available Not Available No t Available celecoxib 100 mg capsule TAKE 1 CAPSULE BY MOUTH EVERY 12 HOURS NEEDED FOR PAIN. TAKE WITH FOOD 02/08 completed Not Available Not Available Not Available hydroxyzi ne HCl 10 mg tablet 04/08 completed Prescrib ed Elsewher e: Yes Loca tion: [facility] odify By: gen mellountjose alejandro DateTime : 05/20/20 15 03:00:00 PM Not Available Not Available Not Available ondansetr on 4 mg disintegr ating tablet DISSOLVE 1 TABLET ON TONGUE EVERY DAY NEEDED FOR NAUSEA 02/08 completed Not Available Not Available Not Available Tenex 1 mg tablet take 1 tablet by oral route every day at bedtime 06/17 completed Prescrib ed Elsewher e: Yes Loca tion: [facility] odify By: francoise mellountjose alejandro DateTime : 04/08/20 16 01:30:00 PM Not Available Not Available Not Available multivita min capsule take 1 capsule by oral route every day active Prescrib ed Elsewher e: Yes Loca tion: Asa garcia [facility] odify By: jez mellountjose alejandro DateTime : 07/12/20 13 10:30:00 AM Not Available Not Available Not Available medroxypr ogesteron e 150 mg/mL intramusc ular suspensio n INJECT 1 ML INTO THE MUSCLE ONCE EVERY 3 MONTHS active Not Available Not Available No t Available prazosin 2 mg capsule TAKE 1 CAPSULE BY MOUTH EVERYDAY AT BEDTIME 02/08 completed Not Available Not Available Not Available hydroxyzi ne pamoate 25 mg capsule TAKE 1-2 CAPSULES BY MOUTH TWICE A DAY NEEDED FOR ANXIETY active Not Available Not Available No t Available Excedrin Extra Strength 250 mg-250 mg-65 mg tablet 01/31 completed Prescrib ed Elsewher e: Yes Loca tion: [facility] odify By: francoise mellountjose alejandro DateTime : 05/17/20 11 01:00:00 PM Not Available Not Available Not Available Depo-Prov era 150 mg/mL intramusc ular syringe inject 1 millilit er (150MG) by intramus cular route every 3 months 01/31 completed Prescrib ed Elsewher e: No Locat ion: [facility] odify By: francoise casarez DateTime : 08/16/20 13 09:19:54 AM Not Available Not Available Not Available aripipraz ole 10 mg tablet TAKE 1 TABLET BY MOUTH EVERY DAY 02/08 completed Not Available Not Available Not Available aripipraz ole 15 mg tablet TAKE 1 TABLET BY MOUTH EVERY DAY FOR 30 DAYS active Not Available Not Available No t Available Strattera 40 mg capsule TAKE 1 CAPSULE BY MOUTH EVERY DAY IN THE MORNING FOR 30 DAYS 02/08 completed Not Available Not Available Not Available Lexapro 5 mg/5 mL oral solution take 10 millilit er by oral route every day 02/06 completed Prescrib ed Elsewher e: Yes Loca tion: [facility] odify By: gissel elliott DateTime : 07/12/20 13 10:30:00 AM Not Available Not Available Not Available escitalop frantz 5 mg tablet TAKE 1 TABLET BY MOUTH EVERY DAY 02/08 completed Not Available Not Available Not Available Aleve 220 mg capsule 02/08 completed Prescrib ed Elsewher e: Yes Loca tion: [facility] odify By: francoise casarez DateTime : 02/01/20 14 02:30:00 PM Not Available Not Available Not Available Rexulti 1 mg tablet TAKE 1 TABLET BY MOUTH EVERY DAY FOR 30 DAYS 02/08 completed Not Available Not Available Not Available Rexulti 0.5 mg tablet TAKE 1 TABLET BY MOUTH EVERY DAY FOR 30 DAYS 02/08 completed Not Available Not Available Not Available Vitals Date Recorded Body height Body mass index (BMI) Body weight Systolic And Diastolic Provider Name and Address Organization Details Last Updated DateTime 02/08/2025 165.1 cm 34.3 kg/m2 23531.03 g 117/82 mm[Hg] Linnette Restrepo [facility] 02/08/2025 12:37:39 Social History Question Answer Notes LastModified by Organizat ion Details LastModified Time Tobacco Smoking Status Current Every Day Smoker Linnette Restrepo [facility] 02/08/2025 12:43:05 Are You Blind Or Do You Have Difficulty Seeing? No Information n ot available 02/08/2025 What Is Your Level Of Caffeine Consumption? Heavy Information not available 02/08/2025 In The 14 Days Before Symptom Onset, Have You Had Close Contact With A Laboratory-confirm ed COVID-19 While That Case Was Ill? No Information n ot available 02/08/2025 In The 14 Days Before Symptom Onset, Have You Had Close Contact With A Person Who Is Under Investigation For COVID-19 While That Person Was Ill? No Information not available 02/08/2025 Have You Been To An Area Known To Be High Risk For COVID-19? No Information not available 02/08/2025 Are You Deaf Or Do You Have Serious Difficulty Hearing? No Information not available 02/08/2025 What Type Of Diet Are You Following? REGULAR Information n ot available 02/08/2025 What Is The Highest Grade Or Level Of School You Have Completed Or The Highest Degree You Have Received? [id number] Information not available 02/08/2025 Are There Any Guns Present In Your Home? No Information not available 02/08/2025 Do You Use Protection During Sex? No Information not available 02/08/2025 Do You Use Your Seat Belt Or Car Seat Routinely? Yes Information not available 02/08/2025 Are You Sexually Active? Yes Information not available 02/08/2025 Do You Have Smoke And Carbon Monoxide Detectors In Your Home? Yes Information not available 02/08/2025 Do You Use Sunscreen Routinely? Yes Information not available 02/08/2025 Do You Have Difficulty Walking Or Climbing Stairs? No Information not available 02/08/2025 Sex: Unknown Functional Status Question Answer Note LastModified by Organizat ion Details LastModified Time Do you use any illicit or recreational drugs? No Information not available 02/08/2025 What is your level of alcohol consumption? None Information not available 02/08/2025 Are you currently employed? Yes Information not available 02/08/2025 Are you able to walk? YESWOREST Information not available 02/08/2025 Are you able to care for yourself? Yes Information n ot available 02/08/2025 Do you have difficulty dressing or bathing? No Information not available 02/08/2025 Mental Status Question Answer Note LastModified by Organization D etails LastModified Time Do you feel stressed (tense, restless, nervous, or anxious, or unable to sleep at night)? [id number] Information not available 02/08/2025 Family History Relationship Description Onset Age of this Age Resolved Age Notes LastModified by Organization Details LastModified Time Mother Malignant tumor of breast Not available 2024 12:42:00 Paternal Grandfather Malignant tumor of colon Not available 2024 12:42:11 Father Diabetes mellitus Not available 2024 12:42:21 Father Hypercholest erolemia Not available 2024 12:42:30 Father Hypertensive disorder Not available 2024 12:42:41 Notes:Father: Diabetes melli tus, Coronary artery disease Maternal grandfather: Hypertension Maternal grandmother: Bipolar disorder Mother: Bipolar disorder Medical History Condition Response Anxiety Disorder Y History of STI Y History of abnormal pap Y Depression/ depression Y Gynecological History Statement/Question Response Abnormal Pap Y Date of LMP On BCP's at Conception? N Was last menstrual period normal Y STIs/STDs Y HPV Vaccine Y Current Control Method Depo-Court Recording Monitor a Age at First Child 17 Are cycles usually normal N Sexually Active? Y Menses Monthly N Age of first menstrual cycle 9 Date of Last Pap Smear 09/05/2023 Sexual Problems? N Desired Control Method Sterilizati on LMP Unknown Obstetrics History GPAL:G 1 P 0 0 0 1 Type Value Living 1 Total 1 Past Encounters Encounter ID Performer Location Encounter Start Date Encounter Closed Date Diagnosis/Indication Diagnosis SNOMED-CT Code Diagnosis ICD10 Code Diagnosis Note [id number] Judd Mcdermott MD [facility] [address] [address] 02/08/2025 11:16:44 02/08/2025 13:05:02 Sterilization education [id number] Z30.09 This patient presents for female sterilizat ion. The patient desires tubal ligation. She is certain that she no longer wants to be fertile. We discussed sterilizat ion in detail. I described the procedure to the patient in detail. I informed her that we remove the tubes entirely in a. We discussed alternativ es. The patient knows they are highly effective reversible options. She understand s that the Salpingect arianna n is permanent. We discussed failure rate. She understand s there is reported failure rate to salpingect arianna.. As described salpingect arianna and removal of the entire tube. I discussed the reduction in ovarian cancer risk. The patient understand s and is ready to proceed with laparoscop ic bilateral tubal ligation. She understand s the tubes we fulgurated . She return for informed consent process. Her surgery will be scheduled. Health Concerns Section Related Observation LastModified by Organization Detai ls LastModified Time None Recorded Concern Status LastModified by Organization Details LastModified Time None Recorded Advance Directives Directive None Recorded Payers Insurance Date Sequence Insurance Name Policy Number Policy Verma Covered Member ID Verma Member ID Guarantor Name 03/10/2025 1 [facility] (MEDICAID HMO) [id number] Arlet Shetty [id number] Arlet Sehtty Notes Date Note Type Note Provider Name and Address Organization Details Recorded Time 02/08/2025 text/html This patient presents for female sterilization. The patient desires tubal ligation. She is certain that she no longer wants to be fertile. We discussed sterilization in detail. I described the procedure to the patient in detail. I informed her that we remove the tubes entirely in a. We discussed alternatives. The patient knows they are highly effective reversible options. She understands that the Salpingectomy n is permanent. We discussed failure rate. She understands there is reported failure rate to salpingectomy.. As described salpingectomy and removal of the entire tube. I discussed the reduction in ovarian cancer risk. The patient understands and is ready to proceed with laparoscopic bilateral tubal ligation. She understands the tubes we fulgurated. She return for informed consent process. Her surgery will be scheduled. Judd Mcdermott MD [address], [place], [address], [facility] 02/08/2025 13:00:11 OBGyn Episode Ob Episode Information Episode Created Date Number of Fetuses Patient Bloodtype Patient rh Status Prepregnancy Weight lbs Domestic Partner Domestic Partner Phone Father Name Cardiac Monitor Status 02/09/20 25 1 CLOSED Fetus Data First Name Last Name Admitted to NICU Weight (g) Sex Living Outcome Pediatric Complications Fetus ID Race Codes Race Delivery Type 3543.46 [id number] F Full Term [id number] Vaginal Delivery Rocky Calculation Initial Rocky Date Initial Exam Date Initial Exam Provider Initial Ultrasound Date Last Menstrual Period Date Ultra Sound Weeks Gestation 0 Eighteen To Twenty Week Rocky Update Ultra Sound Date Fundal Height At Umbil Quickening Date Ultra Sound Latest Weeks Gestation Final Rocky Confirmed By Final Rocky Confirmed Date Final Rocky Date Ultra Sound Latest Days Gestation 0 0 Menstrual History Last Menstrual Date Menses Monthly On Bcp Conception Prior Menses Frequency Hcg Plus Date Menarche Onset Age Delivery Information Delivery Date Delivery Type Labor Anesthesia Weeks Gestation Incision Type Labor Labor Length Hrs Delivered By Post Complications Tubal Sterilization Discharge Date Comments 7 42 Discharge Information Feeding Method Contraceptive Method Maternal HG B and HCT Levels
--- OUTSIDE RECORDS SUMMARY | 2025-03-13 02:08 | XMS_ITS | Data Portability ---
Author Organization [place] [facility] [employer], Main Office Address [address] [place] [address] Care Team Providers Care Technology Adoption Manager Name Role Phone SHELDON DUNCAN Primary Care Provider [phone] SHELDON DUNCAN Referring Provider Assessment No assessment recorded. Plan of Treatment Reminders Order Date Submit Date Provider Last Modified By Organization Details Last Modified Time Details Appointments None recorded. Lab unlisted lab - aerobic bacterium id/sensitiv 2023 024 [email or web address] 2 [facility] (Lab), [address] [place], [address], 4 08:49:39 culture, anaerobic 2023 024 [facility] (Lab), [address] [place], [address], 4 08:39:18 rf (rheumatoid factor), serum 2023 024 [facility] (Lab), [address] [place], [address], 4 15:27:22 BELINDA (antinuclea r antibodies) screen, serum 2023 024 [facility] (Lab), [address] [place], [address], 4 15:24:13 C-reactive protein, quantitativ e, serum or plasma 2023 024 [facility] (Lab), [address] [place], [address], 4 15:25:26 ccp (cyclic citrullinat ed peptide) iga+igg, serum 2023 [facility] (Lab), [address] [place], [address], 4 15:26:24 erythrocyte sedimentati on rate by westergren method 2023 024 [facility] (Lab), [address] [place], [address], 4 15:28:18 uric acid, serum or plasma 2023 [facility] (Lab), [address] [place], [address], 4 15:28:58 CBC 2023 024 [facility] (Lab), [address] [place], [address], 4 15:29:36 rapid flu (A+B) 2023 024 [address], [place], [address], 4 16:05:47 rsv (respirator y syncytial virus), rapid, nasopharyng eal 2023 024 [address], [place], [address], 4 16:05:47 Referral physical therapist referral - Please call patient to schedule. Note from provider: left shoulder strain since june . 2024 025 [email or web address] [facility], [address], [place], [address], 5 10:29:19 rheumatolog ist referral - Please call patient to schedule an appointment . Thank you. 2023 024 [email or web address] [facility] - Rheumatology, [address] [place], [address], 4 14:49:03 Procedures None recorded. Surgeries None recorded. Imaging None recorded. Medication Orders Depo-Medrol 80 mg/mL suspension for injection 2024 025 [email or web address] 3 Not available 5 10:13:58 prednisone 20 mg tablet 2024 025 [facility]/Pharmacy #[id number], [address], [place], [address], 5 12:02:03 ibuprofen 800 mg tablet 2023 024 [facility]/Pharmacy #[id number], [address], [place], [address], 4 12:17:50 clindamycin HCl 150 mg capsule 2023 025 gonzales 200 [facility]/Pharmacy #[id number], [address], [place], [address], 5 15:13:00 valacyclovi r 1 gram tablet 2023 024 [facility]/Pharmacy #[id number], [address], [place], [address], 4 12:39:13 prednisone 20 mg tablet 2023 024 [id number], [address], [place], [address], 4 11:49:35 prednisone 20 mg tablet 2023 024 [facility]/Pharmacy #[id number], [address], [place], [address], 4 11:49:35 azithromyci n 250 mg tablet 2023 024 [facility]/Pharmacy #[id number], [address], [place], [address], 4 12:24:33 promethazin e-DM 6.25 mg-15 mg/5 mL oral syrup 2023 024 [facility]/Pharmacy #[id number], [address], [place], [address], 4 12:25:11 ibuprofen 800 mg tablet 2023 024 [facility]/Pharmacy #[id number], [address], [place], [address], 4 12:33:24 Patient TargetsNo targets recorded. Patient Instructions Encounter Date Encounter Id Patient Instructions Last Modified By Organization Details Last Modified Time 09/03/2024 [id number] RF high , all else normal , referring to rheumatology [email or web address] Not available 09/10/2024 15:17:18 Reason for Referral Vocational Evaluator Referral for Pain of multiple joints Please call patient to schedule an appointment. Thank you. Referring Physician: [facility]on [facility], Encounter Date: 07/16/2024 Physical Therapist Referral for Strain of tendon of left shoulder region Please call patient to schedule.Note from provider: left shoulder strain since june . Referring Physician: Family Gabrielle Smart, Encounter Date: 10/15/2024 Results Created Date Observation Date Name Description Value Unit Range Abnormal Flag Note LastModifiedBy Organization Detail LastModifiedTime 05/01/20 24 05/01/2024 rsv (resp irato ry syncy tial virus ), rapid , nasop haryn geal RSV negati ve Not Available s[address], [place], [address], 05/01/2024 12:25:28 05/01/20 24 05/01/2024 rapid flu (A+B) Flu A negati ve Not Available [address], [place], [address], 05/01/2024 12:13:59 05/01/20 24 05/01/2024 rapid flu (A+B) Flu B negati ve Not Available [address], [place], [address], 05/01/2024 12:13:59 Result Notes None recorded. Problems Name Problem SNOMED Code Status Onset Date Resolution Date Notes Provider Name and Address Organization Details Recorded Time Generalized acute body pains 547194210 Active 2023 Sonam Meng RN null, [employer] 4 12:14:11 Upper respiratory infection 76188886 Active 2023 YOBANY Manriquez [address], [place], [address], [employer] 4 12:21:45 Pain of left knee joint 4905063803919 07 Active 2023 YOBANY Manriquez [address], [address], [place], [address], [employer] 4 12:25:25 Adult health examination Active 2023 YBOANY Manriquez [address], [address], [place], [address], [employer] 4 16:06:09 Migraine 81654512 Active 2023 YOBANY Manriquez [address], [address], [place], [address], [employer] 4 17:39:15 Pain of multiple joints 18711736 Active 2023 YOBANY Manriquez [address], [address], [place], [address], [employer] 4 12:33:09 Herpes zoster 1468069 Active 2023 YOBANY Manriquez [address], [address], [place], [address], [employer] 4 12:38:01 Strain of tendon of left shoulder region Active 2023 YOBANY Manriquez [address], [address], [place], [address], [employer] 4 09:41:59 Sinusitis 73093266 Active 2023 YOBANY Manriquez [address], [address], [place], [address], [employer] 4 12:15:13 Notes:trazadone gives her a hangover feeling Problem Notes None recorded. Procedures Surgical History Date Name Laterality Status Provider Name and Address Organization Details Recorded Time Ankle Surgery completed Sonam tyson RN [facility] [employer] 05/01/2024 12:11:26 Imaging Results None recorded. Procedure Notes None recorded. Medical Equipment None Reported. Allergies Allergen ID Allergen Name Allergen Category Reaction Reaction Severity Criticality Documentation Date Start Date Code Code System Note Provider Name and Address Organization Details Recorded Time 28663 amoxicill in medicatio n rash Not available Not available 05/01/2024 723 RxNorm TALHA Gandhi, MS [employer] [facility] [employer] 4 12:06:39 83840 ciproflox acin medicatio n edema Not available Not available 05/01/2024 2551 RxNorm TALHA Gandhi, [employer] 4 12:07:13 Medications Name Sig Start Date Stop Date Status Note LastModified by Organization Details LastModified Time promethaz ine-DM 6.25 mg-15 mg/5 mL oral syrup TAKE 5 ML BY MOUTH EVERY 4 HOURS X10 DAYS. *MAX 180ML/25 DAYS/INS URANCE* 07/16 completed Not Available Not Available Not Available doxycycli ne hyclate 100 mg capsule TAKE 1 CAPSULE BY MOUTH TWICE DAILY WITH FOOD 05/01 completed Not Available Not Available Not Available azithromy nelson 250 mg tablet TAKE 2 TABLETS BY MOUTH TODAY, THEN TAKE 1 TABLET DAILY FOR 4 DAYS DIRECTED 07/16 completed Not Available Not Available Not Available ibuprofen 800 mg tablet TAKE 1 TABLET 3 TIMES A DAY BY ORAL ROUTE WITH MEAL(S) FOR 10 DAYS. active Not Available Not Available No t Available fluconazo le 150 mg tablet TAKE 1 TABLET BY MOUTH EVERY DAY FOR 1 DAY active Not Available Not Available No t Available valacyclo vir 1 gram tablet TAKE 1 TABLET BY MOUTH THREE TIMES A DAY FOR 10 DAYS active Not Available Not Available No t Available sumatript an 100 mg tablet TAKE 1 TABLET NEEDED BY ORAL ROUTE FOR 9 DAYS. 2024 active Not Available Not Available Not Avai lable prazosin 1 mg capsule TAKE 1 CAPSULE BY MOUTH AT BEDTIME WITH 2MG TO EQUAL 3MG ONCE A DAY 08/06 completed dose adjustme nt Not Available Not Available Not Available prednison e 20 mg tablet PLEASE SEE ATTACHED FOR DETAILED DIRECTIO NS active Not Available Not Available No t Available clonazepa m 0.5 mg tablet TAKE 1 TABLET BY MOUTH EVERY DAY NEEDED FOR 30 DAYS active Not Available Not Available No t Available clonazepa m 1 mg tablet TAKE 1 TABLET BY MOUTH EVERY DAY FOR 30 DAYS 05/01 completed Not Available Not Available Not Available clindamyc in HCl 150 mg capsule TAKE 1 CAPSULE BY MOUTH EVERY 6 HOURS FOR 10 DAYS active Not Available Not Available No t Available Depo-Medr ol 80 mg/mL suspensio n for injection Take 1 mL by injectio n route. 2024 active Not Available Not Available Not Avai lable lamotrigi ne 25 mg tablet TAKE 1 TABLET BY MOUTH TWICE A DAY 05/01 completed Not Available Not Available Not Available meloxicam 7.5 mg tablet TAKE 1-2 TABLETS BY MOUTH ONCE DAILY WITH FOOD 05/01 completed Not Available Not Available Not Available prazosin 5 mg capsule TAKE 1 CAPSULE BY MOUTH EVERYDAY AT BEDTIME active Not Available Not Available No t Available oxycodone -acetamin ophen 5 mg-325 mg tablet TAKE 1 TABLET BY MOUTH UP TO FOUR TIMES DAILY NEEDED 05/01 completed Not Available Not Available Not Available propranol ol 10 mg tablet TAKE 1 TABLET BY MOUTH EVERY DAY 05/01 completed causes migraine s per pt Not Available Not Available Not Available dicyclomi ne 20 mg tablet TAKE 1 TABLET BY MOUTH FOUR TIMES A DAY NEEDED active Not Available Not Available No t Available oseltamiv ir 75 mg capsule TAKE 1 CAPSULE BY MOUTH TWICE A DAY FOR 5 DAYS 05/01 completed Not Available Not Available Not Available fluoxetin e 10 mg capsule active Not Available Not Available Not Available gabapenti n 300 mg capsule TAKE 1 CAPSULE BY MOUTH THREE TIMES A DAY FOR 30 DAYS active Not Available Not Available No t Available propranol ol 20 mg tablet TAKE 1 TABLET BY MOUTH AT BEDTIME. CAN INCREASE TO TWICE DAILY IF TOLERATI NG WELL 05/01 completed causes mirgrain es per pt Not Available Not Available Not Available celecoxib 100 mg capsule TAKE 1 CAPSULE BY MOUTH EVERY 12 HOURS NEEDED FOR PAIN. TAKE WITH FOOD active Not Available Not Available No t Available ondansetr on 4 mg disintegr ating tablet PLACE 1 TABLET ON THE TONGUE AND ALLOW TO DISSOLVE NEEDED FOR NAUSEA ORALLY ONCE A DAY active Not Available Not Available No t Available fluticaso ne propionat e 50 mcg/actua tion nasal spray,kirsten pension ONE SPRAY EACH NOSTRIL TWICE A DAY 05/01 completed Not Available Not Available Not Available medroxypr ogesteron e 150 mg/mL intramusc ular suspensio n INJECT 1 ML INTO THE MUSCLE ONCE EVERY 3 MONTHS active Not Available Not Available No t Available lamotrigi ne 100 mg tablet TAKE 1 TABLET BY MOUTH EVERY DAY FOR 30 DAYS 05/01 completed Not Available Not Available Not Available prazosin 2 mg capsule TAKE 1 CAPSULE BY MOUTH EVERYDAY AT BEDTIME active Not Available Not Available No t Available naproxen 500 mg tablet TAKE 1 TABLET BY MOUTH TWICE A DAY WITH FOOD active Not Available Not Available No t Available hydroxyzi ne pamoate 25 mg capsule TAKE 1-2 CAPSULES BY MOUTH TWICE DAILY FOR ANXIETY NEEDED 90 DAYS active Not Available Not Available No t Available escitalop frantz 10 mg tablet TAKE 1 TABLET BY MOUTH EVERY DAY FOR 30 DAYS 05/01 completed dose adjustme nt Not Available Not Available Not Available aripipraz ole 10 mg tablet TAKE 1 TABLET BY MOUTH EVERY DAY active Not Available Not Available No t Available aripipraz ole 15 mg tablet TAKE 1 TABLET BY MOUTH EVERY DAY active Not Available Not Available No t Available Strattera 40 mg capsule TAKE 1 CAPSULE BY MOUTH EVERY DAY IN THE MORNING FOR 30 DAYS active Not Available Not Available No t Available cyclobenz aprine 5 mg tablet TAKE 1-2 TABLETS BY MOUTH AT BEDTIME. CAN TAKE TWICE DAILY NEEDED. MAX 3 TABS/DAY PER INSURANC E 05/01 completed Not Available Not Available Not Available escitalop frantz 5 mg tablet TAKE 1 TABLET BY MOUTH EVERY DAY 07/16 completed Not Available Not Available Not Available lurasidon e 40 mg tablet TAKE 1 TABLET BY MOUTH EVERY DAY IN THE EVENING WITH FOOD 05/01 completed Not Available Not Available Not Available lurasidon e 80 mg tablet TAKE 1 TABLET BY MOUTH EVERY DAY IN THE EVENING WITH FOOD 05/01 completed Not Available Not Available Not Available lurasidon e 20 mg tablet 05/01 completed Not Available Not Available Not Available lurasidon e 60 mg tablet TAKE 1 TABLET BY MOUTH EVERY DAY IN THE EVENING WITH FOOD 05/01 completed Not Available Not Available Not Available Rexulti 1 mg tablet TAKE 1 TABLET BY MOUTH EVERY DAY FOR 30 DAYS 07/16 completed Not Available Not Available Not Available Rexulti 0.5 mg tablet TAKE 1 TABLET BY MOUTH EVERY DAY FOR 30 DAYS 07/16 completed Not Available Not Available Not Available Vitals Date Recorded Body height Body mass index (BMI) Body weight Body temperature Heart rate Respiratory rate Oxygen saturation Oxygen saturation in Arterial blood by Pulse oximetry Systolic And Diastolic Provider Name and Address Organization Details Last Updated DateTime 5 165.1 cm 35.3 kg/m2 55372.5 8 g 97.4 [degF] 98 /min 16 /min 100 % 100 % 130/84 mm[Hg] iLlliam Florence MS - [facility] 5 11:53:10 Date Recorded Body weight Body mass index (BMI) Body height Body temperature Heart rate Oxygen saturation Oxygen saturation in Arterial blood by Pulse oximetry Respiratory rate Systolic And Diastolic Provider Name and Address Organization Details Last Updated DateTime 4 51292.5 8 g 35.3 kg/m2 165.1 cm 97.1 [degF] 97 /min 99 % 99 % 16 /min 124/90 mm[Hg] Sonam Meng RN [employer] [facility] 4 12:13:33 Date Recorded Body height Body mass index (BMI) Body weight Body temperature Heart rate Oxygen saturation Oxygen saturation in Arterial blood by Pulse oximetry Systolic And Diastolic Provider Name and Address Organization Details Last Updated DateTime 4 165.1 cm 34.9 kg/m2 10099.4 g 97.9 [degF] 86 /min 100 % 100 % 128/90 mm[Hg] Sonam Meng RN [employer] [facility] 4 12:29:28 Date Recorded Body height Body mass index (BMI) Body weight Body temperature Heart rate Oxygen saturation Oxygen saturation in Arterial blood by Pulse oximetry Systolic And Diastolic Provider Name and Address Organization Details Last Updated DateTime 4 165.1 cm 35.1 kg/m2 28582.9 9 g 98 [degF] 85 /min 100 % 100 % 124/80 mm[Hg] Sonam Meng RN [employer] [facility] 4 11:50:58 Date Recorded Body height Body mass index (BMI) Body weight Body temperature Heart rate Oxygen saturation Oxygen saturation in Arterial blood by Pulse oximetry Systolic And Diastolic Provider Name and Address Organization Details Last Updated DateTime 4 165.1 cm 34.4 kg/m2 47894.6 2 g 98.2 [degF] 80 /min 100 % 100 % 116/84 mm[Hg] Sonam Meng RN [employer] [facility] 4 12:00:17 Social History None recorded. Functional Status Question Answer Note LastModified by Organizat ion Details LastModified Time Do you or have you ever used any other forms of tobacco or nicotine? Yes Information not available 05/01/2024 Do you or have you ever used e-cigarettes or vape? Current user of electronic cigarettes Information not available 05/01/2024 Mental Status None recorded. Family History Nothing Reported. Medical History No medical history recorded. Gynecological HistoryNo gynecological history recorded. Obstetrics History GPAL:G 0 P 0 0 0 0 Immunizations Vaccine Type Date Status Note Provider Nam e and Address Organization Details Recorded Time Influenza, split virus, trivalent, PF 08/06/2024 completed YOBANY Manriquez [address], [address], [place], [address], [facility] [employer] [facility] 08/14/2024 15:06:51 Past Encounters Encounter ID Performer Location Encounter Start Date Encounter Closed Date Diagnosis/Indication Diagnosis SNOMED-CT Code Diagnosis ICD10 Code Diagnosis Note [id number] [facility] [address] [facility] [address] [place] [address] 05/01/2024 11:49:04 05/01/2024 12:38:25 Generalized acute body pains 482316449 R52 Upper resp iratory infection 98924950 J06.9 Pain of le ft knee joint 8880136411 93356 M25.562 Adult heal th examination 161450965 Z00.00 [id number] Ronaldo Reyes MD [facility] [address] [facility] [address] [place] [address] 07/16/2024 12:19:41 07/16/2024 13:53:59 Pain of multiple joints 43090790 M25.50 Herpes zoster 3458328 B0 2.9 Strain of tendon of left shoulder region 2505485107 7108 S46.912A [id number] Ronaldo Reyes MD [address] [address] 08/06/2024 11:29:37 08/06/2024 12:28:19 Administration of influenza vaccine 56828582 Z23 Pain of mu ltiple joints 57594561 M25.50 [id number] Ronaldo Reyes MD [address] [address] 09/03/2024 11:51:13 09/03/2024 12:22:15 Sinusitis 53890285 J32.9 Upper resp iratory infection 12242894 J06.9 [id number] Ronaldo Reyes MD [address] [address] 10/15/2024 11:23:53 10/15/2024 12:08:55 Strain of tendon of left shoulder region 2243993368 7108 S46.912A Pain of mu ltiple joints 82269029 M25.50 Health Concerns Section Related Observation LastModified by Organization Detai ls LastModified Time None Recorded Concern Status LastModified by Organization Details LastModified Time None Recorded Advance Directives Directive None Recorded Payers Insurance Date Sequence Insurance Name Policy Number Policy Verma Covered Member ID Verma Member ID Guarantor Name 11/24/2024 1 [facility] (MEDICAID HMO) [id number] Arlet Shetty [id number] Arlet Shetty Notes Date Note Type Note Provider Name and Address Organization Details Recorded Time 05/01/2024 text/html orthopedist left knee; uri , no fever , YOBANY Manriquez [address], [address] [employer], [place], [address], [employer] 05/06/2024 16:08:00 07/16/2024 text/html hard to walk aft er work , left shoulder strain , ortho see. painful rash under both arms YOBANY Manriquez [address], [address] [employer], [place], [address], [employer] 07/25/2024 09:42:34 08/06/2024 text/html goes to sleep bu t wakes up frequently , cannot get back to sleep YOBANY Manriquez [address], [address], [place], [address], [employer] [place] [employer] 08/14/2024 15:09:00 09/03/2024 text/html sinus pressure n ow , no fever YOBANY Manriquez [address], [address], [place], [address], [employer] 09/10/2024 15:18:30 10/15/2024 text/html left shoulder pa in . no recent trauma YOBANY Manriquez [address], [place], [address], [employer] 10/18/2024 15:57:13 OBGyn Episode No OBEpisode recorded.
[2025-03-13] MEDS: ACETAMINOPHEN 500 MG TABLET 1000 MG PO (07:25)
[2025-03-13 07:35] LABS: BEDSIDEPREGUCG Negative (Negative)
[2025-03-13] MEDS: LACTATED RINGERS 1,000 ML 30 ML IV CONT ×2 (07:35→10:40)
[2025-03-13] MEDS: KETOROLAC 15 MG/ML VIAL (*BKC) IV PUSH (07:37)
--- NOTE | 2025-03-13 07:52 | P.PNAN_ITS ---
Anes - Initial Pre Proc Eval Procedure: Operation Date: 03/13/25 09:00 Proposed Procedures p Laparoscopic Bilateral Salpingectomy - Judd Mosqueda MD Date/Time: 03/13/25 07:52 Surgeon: Judd Mosqueda MD Pre Op Diagnosis: Female Sterilization Patient Data Age: 34 Gender: F Height: 1.63 m Weight: 89.2 kg Last Vital Signs Temp 36.3 C L 03/13/25 06:57 Pulse 78 03/13/25 06:57 Resp 16 03/13/25 06:57 BP 124/79 03/13/25 06:57 Pulse Ox 100 03/13/25 06:57 O2 Del Method Room Air 03/13/25 06:57 Allergies Allergy/AdvReac Type Severity Reaction Status Date / Time amoxicillin Allergy Intermediate Rash Verified 03/13/25 07:26 ciprofloxacin Allergy Intermediate throat Verified 03/13/25 07:26 swelling, rash shrimp Allergy Intermediate rash Verified 03/13/25 07:26 Home Medications ?Medication ?Instructions ?Recorded ?Confirmed ?Type aripiprazole 15 mg tablet 15 mg PO HS 03/05/25 03/13/25 History atomoxetine 40 mg capsule 40 mg PO DAILY adhd 03/05/25 03/13/25 History (Strattera) clonazepam 0.5 mg tablet 0.5 mg PO PRN PRN anxiety 03/05/25 03/05/25 History gabapentin 300 mg capsule 300 mg PO TID 03/05/25 03/13/25 History hydroxyzine pamoate 25 mg capsule 25 mg PO PRN PRN anxiety 03/05/25 03/13/25 History multivitamin 1 tablet PO DAILY 03/05/25 03/13/25 History prazosin 2 mg capsule 5 mg PO HS 03/05/25 03/13/25 History sumatriptan succinate 100 mg tablet 100 mg PO PRN PRN migraine headache 03/05/25 03/05/25 History Laboratory Tests 03/13/25 07:31 POC Urine HCG, Qual Negative (Negative) Patient hx anesthesia problems: none Family hx anesthesia problems: none Results Review: All pre-operative results and documents have been reviewed as part of the pre- operative evaluation. [facility] Past Medical History Medical History (Updated 03/13/25 @ 07:52 by Ciro Dixon MD) Obesity Social History Social History Smoking status: Current every day smoker Tobacco type: e-cigarettes/vaping Additional smoking assessment comments: smoked cigarettes for 10 year prior to vaping Alcohol intake: never Substance use: current Substance use type: marijuana Other substance usage details: Weekly Living arrangements: with family Additional living arrangements comments: and children Spiritual care concerns: No Anes - Eval Final PreProcedure Day of Procedure 03/13/25 07:52 Patient weight: obese Heart: regular rate and rhythm Lungs: clear to auscultation Airway: Mallampati scale class II Neurological: alert and oriented Last oral intake: >/= 8 hours ASA classification: III Emergent: no Anesthetic plan: proceed Anesthesia type and monitoring: general ETT and standard monitoring Results Review: All pre-operative results and documents have been reviewed as part of the pre-operative evaluation. Informed Consent: The patient's anesthetic plan and its attendant risks and benefits were discussed with the patient/family/POA. Questions were solicited and answers provided to the satisfaction of the patient/family/POA.
--- NOTE | 2025-03-13 08:39 | P.HP_ITS ---
H&P: HPI History of Present Illness Date/Time: 03/13/25 08:39 Chief Complaint: Unwanted fertility Narrative: This patient is a 34-year-old female with unwanted fertility. We have agreed to perform laparoscopic bilateral salpingectomy she understands risks, benefits, and alternatives. She has completed informed consent process is ready to proceed. The patient understands the details of the procedure. The procedure has been explained in detail. She understands the risks. She understands that injuries may occur that result in hospitalization, more surgery, and severe illness. She understands risk of hemorrhage and infection. She denies any chest pain or shortness of breath. She denies any nausea, vomiting, fever, chills. Review of Systems Review of Systems: All systems reviewed & are unremarkable except as noted in HPI and below Constitutional: Constitutional: Denies chills, Denies fatigue, Denies fever(s) and Denies weakness Eyes: Eyes: Denies blurry vision, Denies change in vision, Denies loss of peripheral vision, Denies loss of vision, Denies other visual disturbances and Denies eye pain ENT: Denies vertigo, Denies dizziness, Denies hearing loss, Denies mouth pain, Denies nasal obstruction, Denies neck mass and Denies neck pain Cardiovascular: Cardiovascular: Denies chest pain, Denies diaphoresis, Denies syncope, Denies leg edema and Denies dyspnea Respiratory: Respiratory: Denies chest congestion, Denies cough, Denies hemoptysis, Denies dyspnea and Denies wheezing Gastrointestinal: Gastrointestinal: Denies abdominal pain, Denies constipation, Denies diarrhea, Denies nausea and Denies vomiting Genitourinary: Genitourinary: Denies hematuria, Denies change in libido, Denies nocturia, Denies genital lesions, Denies flank pain and Denies urinary urgency Musculoskeletal: Musculoskeletal: Denies abnormal gait, Denies back pain, Denies myalgias, Denies arthralgias, Denies joint swelling, Denies muscle weakness and Denies neck pain Integumentary/Breasts: Skin/Breast: Denies swelling, Denies breast pain, Denies breast mass, Denies dry skin, Denies nipple discharge, Denies unusual bruising and Denies jaundice Neurologic: Denies Neuro-related abnormal movements, Denies Abnormal speech present, Denies abnormal gait, Denies behavioral changes, Denies confusion, Denies vertigo, Denies dizziness, Denies syncope, Denies loss of vision, Denies memory loss, Denies convulsions and Denies weakness Psychiatric: Psychiatric: Denies abnormal sleep pattern, Denies behavioral changes, Denies change in libido, Denies confusion, Denies depression, Denies anhedonia and Denies memory loss Endocrine: Endocrine: Reports no additional endocrine complaints, Denies change in libido and Denies fatigue Hematologic/Lymphatic: Hematologic/Lymphatic: Reports no additional hematologic/lymphatic complaints Allergic/Immunologic: Allergic/Immunologic: Reports no additional allergic/immunologic complaints and Denies wheezing [facility] Past Medical History Medical History (Updated 03/13/25 @ 08:40 by Judd Mosqueda MD) Obesity Social History Social History Smoking status: Current every day smoker Tobacco type: e-cigarettes/vaping Additional smoking assessment comments: smoked cigarettes for 10 year prior to vaping Alcohol intake: never Substance use: current Substance use type: marijuana Other substance usage details: Weekly Living arrangements: with family Additional living arrangements comments: and children Spiritual care concerns: No Meds Home Medications and Allergies Home Medications ?Medication ?Instructions ?Recorded ?Confirmed ?Type aripiprazole 15 mg tablet 15 mg PO HS 03/05/25 03/13/25 History atomoxetine 40 mg capsule 40 mg PO DAILY adhd 03/05/25 03/13/25 History (Strattera) clonazepam 0.5 mg tablet 0.5 mg PO PRN PRN anxiety 03/05/25 03/05/25 History gabapentin 300 mg capsule 300 mg PO TID 03/05/25 03/13/25 History hydroxyzine pamoate 25 mg capsule 25 mg PO PRN PRN anxiety 03/05/25 03/13/25 History multivitamin 1 tablet PO DAILY 03/05/25 03/13/25 History prazosin 2 mg capsule 5 mg PO HS 03/05/25 03/13/25 History sumatriptan succinate 100 mg tablet 100 mg PO PRN PRN migraine headache 03/05/25 03/05/25 History Allergies Allergy/AdvReac Type Severity Reaction Status Date / Time amoxicillin Allergy Intermediate Rash Verified 03/13/25 07:26 ciprofloxacin Allergy Intermediate throat Verified 03/13/25 07:26 swelling, rash shrimp Allergy Intermediate rash Verified 03/13/25 07:26 Vital Signs Vital Signs - 24 hr 03/13/25 06:57 Temperature 97.3 F L Pulse Rate 78 Respiratory Rate 16 Blood Pressure 124/79 Pulse Oximetry 100 Oxygen Delivery Room Air Exam Const: General: cooperative, healthy appearing, comfortable and no acute distress Orientation/consciousness: oriented to person, oriented to place and oriented to time HENMT: Head: normal to inspection Ears: external ears normal Face/Nose/Sinus: Normal external nose present and normal facial exam Face and sinus: normal facial exam Eyes: General: appearance normal, both eyes and all related structures Neck: Neck: normal visual inspection, trachea midline and supple Resp: Auscultation: clear to auscultation bilaterally, no crackles, no rales, no rhonchi and no wheezes Cardio: Rate: regular rate Rhythm: regular rhythm Heart sounds: no click, no murmurs and no rubs GI: GI Palp: No abdominal tenderness, No Soft to palpation, No Tenderness to palpation present (GI) and No Palpable mass present Auscultation: normal bowel sounds Skin: General skin exam: normal color and no rashes or lesions noted Neuro: General: oriented to person, oriented to place and oriented to time Extrem: General: normal to inspection, no joint enlargement, no clubbing, cyanosis or edema, no pedal edema and no calf tenderness Psych: Appearance: grossly normal Mental Status: mental status grossly normal Speech and movement: Normal speech and movement present Assessment and Plan Assessment and plan (1) Unwanted fertility: Code(s): Z30.09 - Encounter for other general counseling and advice on contraception Status: Acute Plan This patient is a 34-year-old female with unwanted fertility. We have agreed to perform laparoscopic bilateral salpingectomy she understands risks, benefits, and alternatives. She has completed informed consent process is ready to proceed.
--- NOTE | 2025-03-13 08:40 | WPDHPUPDATE1 ---
History and Physical Update Update Date/Time: 03/13/25 08:40 History and Physical has been reviewed, including an updated exam of the patient. There are NO changes in the patient's condition. Risks, benefits, and alternatives have been discussed and questions answered. Patient agrees to proceed with procedure.
--- NOTE | 2025-03-13 09:29 | S_PTH ---
PATIENT: Arlet Shetty LOC: [facility] U#:[id number] AGE/SX: 34/F ROOM: RE03/13/[address]: Judd Mosqueda MD : 1990 BED: DIS: 03/13/2025 SPEC #: [id number] RECD: 03/13/25 13:16 STATUS: TRENT RERaquel #: [id number] KIMI: 03/13/25 09:[address]: Judd Mosqueda DEPT: [facility] Surgical RECD BY: Pattie Maddox ENTERED: 03/13/25 13:16 SP TYPE: Surgical OTHR DR: Sheldon Rene, PA Tissues: A - Fallopian Tube Bilateral Procedures: Gross and Microscopic Level 2 Hematoxylin and Eosin Stain
--- NOTE | 2025-03-13 09:54 | P.OP_ITS ---
Procedure Note - Detailed Date of Procedure 03/13/25 Pre-op Diagnosis Female Sterilization Post-op Diagnosis Same Procedure Performed Laparoscopic bilateral salpingectomy Surgeon Judd Mosqueda MD Anesthesia General Indications Unwanted fertility Findings Normal pelvic anatomy Description of Procedure The patient was taken the operating room. She was prepped and draped in the dorsal lithotomy position after induction of general anesthesia. A 5 mm skin incision was made in the left upper quadrant of the abdominal skin. A 5 mm trocar was inserted the intra-abdominal cavity under direct visualization of the scope. Pneumoperitoneum was achieved. A 5 mm trocar was inserted in the left lower quadrant identical fashion. A 5 mm infraumbilical trocar was inserted in identical fashion as well. The bilateral fallopian tubes were removed. This was done by using a LigaSure cautery. The mesosalpinx adjacent to the tube was cauterized transected with LigaSure. This was initiated in the area the ovary and in a stepwise fashion moved medially to the area of the cornu of the uterus. Once there the fallopian tube was cauterized and transected. This was done in identical fashion on each side. The fallopian tubes were taken out through the left lower quadrant trocar site. The pneumoperitoneum was reduced. The trocars removed. The skin was closed with subcuticular 4 Monocryl and covered with De rmabond. She was taken to cover stable condition. Sponge lap and needle counts were correct x2. Estimated Blood Loss 5 Drains No Packing No Pathology Yes Complications No immediate complications Condition Stable Disposition PACU
[2025-03-13] MEDS: fentaNYL CITRATE INJ (*CRX) 100 MCG/2 ML VIAL 25 MCG IV PUSH ×8 (10:09→10:47)
[2025-03-13] MEDS: oxyCODONE HCL (*CRX) 5 MG TAB IR PO (11:30)
== END 2025-03-13 12:30 | disposition home or self-care (01) ==
PROVIDERS: PCP Physician Assistant; Visit Provider Obstetrics & Gynecology
PROC: (CPT 49320; principal; 2025-03-13 09:00)
DX: Z30.2 Encounter for sterilization (principal); G89.18 Other acute postprocedural pain; F17.210 Nicotine dependence, cigarettes, uncomplicated; F12.90 Cannabis use, unspecified, uncomplicated; E66.9 Obesity, unspecified; Z68.33 Body mass index [BMI] 33.0-33.9, adult
CPT/HCPCS: 58661; 88302; A9270; J1100; J1885; J2003; J2250; J2405; J2704; J3010; J7120